=== PATIENT | male | born 1950 | race Caucasian/White ===

== ENCOUNTER 2017-10-25 11:04 | Emergency (ER) | payer MEDICARE ==
[~2017-10-25] VITALS: Ht 167.6 cm; Wt 89.9 kg
[~2017-10-25 11:04] MED LIST: CEFD300C37 PO; TAMS-11 PO
[2017-10-25 12:00] LABS: MICROSCOPIC AUTO
[2017-10-25 12:02] LABS: CULTURE INDICATED? NO
[2017-10-25 12:07] LABS: BASOPHILS # (AUTO) 0.03 x10^3/uL (0-0.1); BASOPHILS % (AUTO) 0 % (0-1); EOSINOPHILS # (AUTO) 0.04 x10^3/uL (0-0.4); EOSINOPHILS % (AUTO) 0 % (1-7); LYMPHOCYTES # (AUTO) 0.93 x10^3/uL (1-3.4); LYMPHOCYTES % (AUTO) 9 % (22-44); MD NO; MEAN CORPUSCULAR HEMOGLOBIN 29.5 pg (27.5-34.5); MEAN CORPUSCULAR HGB CONC 33.8 g/dL (33.2-36.2); MEAN CORPUSCULAR VOLUME 87.2 fL (81-97); MEAN PLATELET VOLUME 8.8 fL (7.4-10.4); MONOCYTES % (AUTO) 4 % (2-9); NEUTROPHILS # (AUTO) 9.33 x10^3/uL (1.8-6.8); NEUTROPHILS % (AUTO) 87 % (42-75); PLATELET COUNT 259 x10^3/uL (130-400); RED BLOOD COUNT 5.34 x10^6/uL (4.38-5.82); RED CELL DISTRIBUTION WIDTH 13.6 % (9.4-14.8)
[2017-10-25 12:14] LABS: ALBUMIN 3.8 g/dL (3.4-5.0); ANION GAP 8 mmol/L (5-15); CALCIUM 8.9 mg/dL (8.5-10.1); CHLORIDE 109 mmol/L (98-107); CREATININE 1.02 mg/dL (0.7-1.3)
[2017-10-25 12:27] VITALS: BP 137/84
== END 2017-10-25 13:04 | disposition home or self-care (01) ==
LOC: ED 12:58
DX: N40.1 Benign prostatic hyperplasia with lower urinary tract symptoms (principal); R33.8 Other retention of urine
CPT/HCPCS: 36415; 51702; 80048; 81001; 82040; 85025; 99284

== ENCOUNTER 2017-10-29 17:13 | Emergency (ER) | payer MEDICARE, OTHER ==
[~2017-10-29] VITALS: Ht 167.6 cm; Wt 85.0 kg
[2017-10-29 17:45] LABS: BASOPHILS # (AUTO) 0.05 x10^3/uL (0-0.1); BASOPHILS % (AUTO) 1 % (0-1); EOSINOPHILS # (AUTO) 0.12 x10^3/uL (0-0.4); EOSINOPHILS % (AUTO) 1 % (1-7); LYMPHOCYTES # (AUTO) 2.69 x10^3/uL (1-3.4); LYMPHOCYTES % (AUTO) 27 % (22-44); MD NO; MEAN CORPUSCULAR HEMOGLOBIN 29.8 pg (27.5-34.5); MEAN CORPUSCULAR HGB CONC 33.9 g/dL (33.2-36.2); MEAN CORPUSCULAR VOLUME 88.1 fL (81-97); MEAN PLATELET VOLUME 8.6 fL (7.4-10.4); MONOCYTES # (AUTO) 0.56 x10^3/uL (0.2-0.8); MONOCYTES % (AUTO) 6 % (2-9); NEUTROPHILS # (AUTO) 6.62 x10^3/uL (1.8-6.8); NEUTROPHILS % (AUTO) 66 % (42-75); PLATELET COUNT 302 x10^3/uL (130-400); RED CELL DISTRIBUTION WIDTH 13.9 % (9.4-14.8)
[2017-10-29 17:55] LABS: ANION GAP 7 mmol/L (5-15); CALCIUM 9.6 mg/dL (8.5-10.1); CHLORIDE 107 mmol/L (98-107); CREATININE 1.06 mg/dL (0.7-1.3)
[2017-10-29 18:10] LABS: MICROSCOPIC INDICATED
[2017-10-29 18:11] LABS: CULTURE INDICATED? YES
[2017-10-29 18:38] VITALS: BP 155/91
== END 2017-10-29 18:51 | disposition home or self-care (01) ==
LOC: ED 18:45
DX: R31.0 Gross hematuria (principal)
CPT/HCPCS: 36415; 80048; 81001; 82040; 85025; 87086; 99284

== ENCOUNTER → 2018-03-04 | Outpatient (CLI) | payer MEDICARE, OTHER ==
[~2018-03-04] MED LIST changes: +HYDR25TA6 PO; +NITR50CA11 PO
[2018-03-04 12:50] LABS: BASOPHILS # (AUTO) 0.04 x10^3/uL (0-0.1); BASOPHILS % (AUTO) 0 % (0-1); EOSINOPHILS # (AUTO) 0.04 x10^3/uL (0-0.4); EOSINOPHILS % (AUTO) 0 % (1-7); LYMPHOCYTES # (AUTO) 1.51 x10^3/uL (1-3.4); LYMPHOCYTES % (AUTO) 15 % (22-44); MD NO; MEAN CORPUSCULAR HEMOGLOBIN 29.2 pg (27.5-34.5); MEAN CORPUSCULAR HGB CONC 33.5 g/dL (33.2-36.2); MEAN CORPUSCULAR VOLUME 87.2 fL (81-97); MEAN PLATELET VOLUME 8.2 fL (7.4-10.4); MONOCYTES # (AUTO) 0.72 x10^3/uL (0.2-0.8); MONOCYTES % (AUTO) 7 % (2-9); NEUTROPHILS # (AUTO) 7.66 x10^3/uL (1.8-6.8); NEUTROPHILS % (AUTO) 77 % (42-75); PLATELET COUNT 302 x10^3/uL (130-400); RED BLOOD COUNT 5.88 x10^6/uL (4.38-5.82); RED CELL DISTRIBUTION WIDTH 12.5 % (9.4-14.8)
[2018-03-04 12:59] LABS: INTERNATIONAL NORMALIZED RATIO 1.02 (0.93-1.1); PROTHROMBIN TIME 10.5 Seconds (9.6-11.5)
[2018-03-04 13:00] LABS: ALANINE AMINOTRANSFERASE 25 U/L (12-78); ANION GAP 9 mmol/L (5-15); CALCIUM 9.6 mg/dL (8.5-10.1); CHLORIDE 106 mmol/L (98-107)
[2018-03-04 13:03] LABS: ALKALINE PHOSPHATASE 87 U/L (45-117); BILIRUBIN,TOTAL 0.7 mg/dL (0.2-1.0); TOTAL PROTEIN 8.3 g/dL (6.4-8.2)
[2018-03-04 13:09] LABS: MICROSCOPIC AUTO
== END | disposition home or self-care (01) ==
LOC: STAR 11:42
PROVIDERS: ATTEND Urology
DX: Z01.818 Encounter for other preprocedural examination (principal); R33.9 Retention of urine, unspecified; N40.0 Benign prostatic hyperplasia without lower urinary tract symptoms
CPT/HCPCS: 36415; 80053; 81001; 85025; 85610; 85730; 87086; 93005

== ENCOUNTER 2018-03-11 10:19 | Inpatient (IN) | payer MEDICARE, OTHER ==
[~2018-03-11] VITALS: Ht 167.6 cm; Wt 80.2 kg
[2018-03-11] MEDS ORDERED: LACTATED RINGERS 1,000 ML IV SCH (10:56)
[2018-03-11 11:07] VITALS: BP 160/100
[2018-03-11] MEDS ORDERED: PROPOFOL 10 MG/ML, 20ML ONE (14:28)
[2018-03-11] MEDS ORDERED: SUCCINYLCHOLINE 20 MG/ML, 10ML ONE (14:29)
[2018-03-11] MEDS ORDERED: ROCURONIUM 10MG/ML,5ML ONE (14:29)
[2018-03-11] MEDS ORDERED: DIPHENHYDRAMINE 50 MG/ML, 1ML IVPush PRN (14:30)
[2018-03-11] MEDS ORDERED: MEPERIDINE/PF 25MG/0.5ML IVPush PRN (14:30)
[2018-03-11] MEDS ORDERED: KETOROLAC 30 MG/1 ML IV PRN (14:30)
[2018-03-11] MEDS ORDERED: LABETALOL 5MG/ML, 20ML IV PRN (14:30)
[2018-03-11] MEDS ORDERED: LORazepam 2 MG/ML, 1ML IVPush PRN (14:30)
[2018-03-11] MEDS ORDERED: METOPROLOL 1 MG/ML, 5ML IV PRN (14:30)
[2018-03-11] MEDS ORDERED: ALBUTEROL SULFATE 2.5 MG/3 ML NPPB PRN (14:30)
[2018-03-11] MEDS ORDERED: MIDAZOLAM 1 MG/ML, 2ML ONE (14:30)
[2018-03-11] MEDS ORDERED: ACETAMINOPHEN 325 MG TABLET PO PRN (14:30)
[2018-03-11] MEDS ORDERED: HYDROmorphone 1 MG/ML, 1ML IV PRN (14:30)
[2018-03-11] MEDS ORDERED: OXYcodone 5 MG/5 ML ORAL.SOL UDC PO PRN (14:30)
[2018-03-11] MEDS ORDERED: EPHEDRINE 50 MG/ML, 1ML IVPush PRN (14:30)
[2018-03-11] MEDS ORDERED: HYDROcodone/APAP 7.5-325MG/15ML UDC PO PRN (14:30)
[2018-03-11] MEDS ORDERED: FENTANYL PF 100 MCG/2ML IV PRN (14:30)
[2018-03-11] MEDS ORDERED: ONDANSETRON 2MG/ML, 2ML IV PRN ×2 (14:30→19:00)
[2018-03-11] MEDS ORDERED: FENTANYL PF 100 MCG/2ML ONE ×3 (14:30→16:12)
[2018-03-11] MEDS ORDERED: GENTAMICIN 80 MG/2 ML ONE ×3 (14:34→14:49)
[2018-03-11] MEDS ORDERED: CEFAZOLIN 1,000 MG ONE (14:45)
[2018-03-11] MEDS ORDERED: DEXAMETHASONE 4 MG/ML, 1ML ONE (14:48)
[2018-03-11 16:45] LABS: BASOPHILS # (AUTO) 0.02 x10^3/uL (0-0.1); BASOPHILS % (AUTO) 0 % (0-1); EOSINOPHILS # (AUTO) 0.03 x10^3/uL (0-0.4); EOSINOPHILS % (AUTO) 0 % (1-7); LYMPHOCYTES # (AUTO) 1.67 x10^3/uL (1-3.4); LYMPHOCYTES % (AUTO) 13 % (22-44); MD NO; MEAN CORPUSCULAR HEMOGLOBIN 30.1 pg (27.5-34.5); MEAN CORPUSCULAR HGB CONC 34.2 g/dL (33.2-36.2); MEAN PLATELET VOLUME 8.2 fL (7.4-10.4); MONOCYTES # (AUTO) 0.31 x10^3/uL (0.2-0.8); MONOCYTES % (AUTO) 3 % (2-9); NEUTROPHILS # (AUTO) 10.54 x10^3/uL (1.8-6.8); NEUTROPHILS % (AUTO) 84 % (42-75); PLATELET COUNT 277 x10^3/uL (130-400); RED BLOOD COUNT 5.13 x10^6/uL (4.38-5.82); RED CELL DISTRIBUTION WIDTH 12.9 % (9.4-14.8)
[2018-03-11] MEDS ORDERED: OPIUM/BELLADONNA SUPP.RECT 16.2-60 MG PR PRN ×2 (17:00→19:00)
[2018-03-11] MEDS ORDERED: OPIUM/BELLADONNA SUPP.RECT 16.2-30 MG ONE (17:03)
[2018-03-11] MEDS ORDERED: OXYcodone 5 MG/5 ML ORAL.SOL UDC ONE (17:29)
[2018-03-11] MEDS ORDERED: LABETALOL 5MG/ML, 20ML ONE (17:36)
[2018-03-11 17:58] LABS: CHLORIDE 101 mmol/L (98-107)
[2018-03-11 18:04] LABS: ANION GAP 9 mmol/L (5-15); CALCIUM 8.1 mg/dL (8.5-10.1); CREATININE 0.81 mg/dL (0.7-1.3)
[2018-03-11] MEDS ORDERED: morphine SULFATE 10 MG/ML, 1ML IV PRN (19:00)
[2018-03-11] MEDS: D5%-0.45NACL+KCL 20MEQ 1,000 ML IV SCH (19:00)
[2018-03-11 19:57] VITALS: BP 116/72
[2018-03-12] MEDS: D5%-0.45NACL+KCL 20MEQ 1,000 ML IV SCH ×3 (00:17→16:00)
[2018-03-12 00:26] VITALS: BP 112/65
[2018-03-12 03:58] VITALS: BP 115/68
[2018-03-12 07:52] VITALS: BP 112/70
[2018-03-12] MEDS ORDERED: HYDROCHLOROTHIAZIDE 25 MG TABLET PO SCH ×2 (09:00→21:00)
[2018-03-12 12:42] VITALS: BP 148/84
[2018-03-12] MEDS ORDERED: CIPR500T87 PO (12:48)
[2018-03-12] MEDS ORDERED: OXYB5TAB7 PO (16:37)
[2018-03-12] MEDS ORDERED: OXYBUTYNIN CHLORIDE 5 MG TABLET PO SCH (17:00)
== END 2018-03-12 17:05 | disposition home or self-care (01) | DRG 713 ==
LOC: OUT 10:19 → 4NOR 18:27 → OUT 18:47
PROVIDERS: ADMIT Urology; ATTEND Urology
PROC: 0TBC8ZZ Excision of Bladder Neck, Via Natural or Artificial Opening Endoscopic (ICD-10-PCS; 2018-03-11)
PROC: 0VB08ZZ Excision of Prostate, Via Natural or Artificial Opening Endoscopic (ICD-10-PCS; principal; 2018-03-11 13:00)
DX: N40.1 Benign prostatic hyperplasia with lower urinary tract symptoms (principal); E87.1 Hypo-osmolality and hyponatremia; R33.8 Other retention of urine; I10 Essential (primary) hypertension
CPT/HCPCS: 36415; 80048; 85014; 85018; 85025; 88305; G0378; J0690; J1100; J2250; J2704; J3010; J0330; J1580; J3480; J7120

== ENCOUNTER 2018-03-15 11:20 | Emergency (ER) | payer MEDICARE ==
[~2018-03-15] VITALS: Ht 167.6 cm; Wt 80.6 kg
[~2018-03-15 11:20] MED LIST changes: +CIPR500T87 PO; +OXYB5TAB7 PO
[2018-03-15] MEDS ORDERED: LIDOCAINE 2%,20 ML JEL.PF.APP MM ONE ×2 (11:49→12:00)
[2018-03-15 13:18] VITALS: BP 128/83
== END 2018-03-15 13:31 | disposition home or self-care (01) ==
LOC: ED 13:20
DX: R33.9 Retention of urine, unspecified (principal); R10.30 Lower abdominal pain, unspecified
CPT/HCPCS: 51702; 99284

== ENCOUNTER 2018-03-21 17:09 | Emergency (ER) | payer MEDICARE ==
[~2018-03-21] VITALS: Ht 170.2 cm; Wt 81.6 kg
[2018-03-21 17:44] LABS: BASOPHILS # (AUTO) 0.05 x10^3/uL (0-0.1); BASOPHILS % (AUTO) 0 % (0-1); EOSINOPHILS % (AUTO) 1 % (1-7); LYMPHOCYTES % (AUTO) 18 % (22-44); MD NO; MEAN CORPUSCULAR HEMOGLOBIN 30.1 pg (27.5-34.5); MEAN CORPUSCULAR VOLUME 88.6 fL (81-97); MONOCYTES # (AUTO) 0.64 x10^3/uL (0.2-0.8); MONOCYTES % (AUTO) 5 % (2-9); NEUTROPHILS # (AUTO) 9.41 x10^3/uL (1.8-6.8); NEUTROPHILS % (AUTO) 76 % (42-75); PLATELET COUNT 344 x10^3/uL (130-400); RED CELL DISTRIBUTION WIDTH 12.9 % (9.4-14.8)
[2018-03-21 17:52] LABS: INTERNATIONAL NORMALIZED RATIO 1.02 (0.93-1.1); PROTHROMBIN TIME 10.5 Seconds (9.6-11.5)
[2018-03-21 17:55] LABS: ALANINE AMINOTRANSFERASE 21 U/L (12-78); ALBUMIN 3.5 g/dL (3.4-5.0); ANION GAP 11 mmol/L (5-15); CHLORIDE 107 mmol/L (98-107); CREATININE 0.86 mg/dL (0.7-1.3)
[2018-03-21 17:57] LABS: ALKALINE PHOSPHATASE 75 U/L (45-117); TOTAL PROTEIN 7.7 g/dL (6.4-8.2)
[2018-03-21] MEDS ORDERED: RIVAROXABAN 15 MG TABLET PO ONE (18:30)
[2018-03-21 19:05] VITALS: BP 151/87
== END 2018-03-21 19:08 | disposition home or self-care (01) ==
LOC: ED 17:56
DX: I82.431 Acute embolism and thrombosis of right popliteal vein (principal)
CPT/HCPCS: 36415; 80053; 85025; 85610; 93005; 99285

== ENCOUNTER 2018-03-22 14:48 | Emergency (ER) | payer MEDICARE ==
[~2018-03-22] VITALS: Ht 170.2 cm; Wt 82.6 kg
[2018-03-22 17:07] LABS: CULTURE INDICATED? YES; MICROSCOPIC INDICATED
[2018-03-22 17:34] VITALS: BP 137/86
== END 2018-03-22 17:35 | disposition home or self-care (01) ==
LOC: ED 17:15
DX: R33.9 Retention of urine, unspecified (principal); Z86.718 Personal history of other venous thrombosis and embolism; N40.0 Benign prostatic hyperplasia without lower urinary tract symptoms
CPT/HCPCS: 81001; 87077; 87086; 87186; 99284

== ENCOUNTER 2018-04-12 05:52 | Emergency (ER) | payer MEDICARE ==
[~2018-04-12] VITALS: Ht 167.6 cm; Wt 81.8 kg
[2018-04-12 06:41] LABS: MICROSCOPIC INDICATED
[2018-04-12 06:42] LABS: CULTURE INDICATED? YES
[2018-04-12 06:44] LABS: BASOPHILS # (AUTO) 0.04 x10^3/uL (0-0.1); BASOPHILS % (AUTO) 0 % (0-1); EOSINOPHILS # (AUTO) 0.32 x10^3/uL (0-0.4); EOSINOPHILS % (AUTO) 3 % (1-7); LYMPHOCYTES # (AUTO) 2.97 x10^3/uL (1-3.4); LYMPHOCYTES % (AUTO) 30 % (22-44); MD NO; MEAN CORPUSCULAR HGB CONC 33.8 g/dL (33.2-36.2); MEAN CORPUSCULAR VOLUME 88.8 fL (81-97); MEAN PLATELET VOLUME 8.5 fL (7.4-10.4); MONOCYTES # (AUTO) 0.58 x10^3/uL (0.2-0.8); MONOCYTES % (AUTO) 6 % (2-9); NEUTROPHILS # (AUTO) 5.97 x10^3/uL (1.8-6.8); NEUTROPHILS % (AUTO) 60 % (42-75); PLATELET COUNT 290 x10^3/uL (130-400); RED BLOOD COUNT 5.29 x10^6/uL (4.38-5.82); RED CELL DISTRIBUTION WIDTH 13.8 % (9.4-14.8)
[2018-04-12 06:47] LABS: ALBUMIN 3.7 g/dL (3.4-5.0); ANION GAP 11 mmol/L (5-15); CALCIUM 9.1 mg/dL (8.5-10.1); CHLORIDE 107 mmol/L (98-107); CREATININE 0.87 mg/dL (0.7-1.3)
[2018-04-12 10:12] VITALS: BP 145/108
== END 2018-04-12 10:14 | disposition home or self-care (01) ==
LOC: ED 06:15
DX: R31.0 Gross hematuria (principal); R33.9 Retention of urine, unspecified; I10 Essential (primary) hypertension; Z86.718 Personal history of other venous thrombosis and embolism
CPT/HCPCS: 36415; 51700; 51702; 80048; 81001; 82040; 85025; 87086; 99284

== ENCOUNTER 2018-04-18 14:33 | Emergency (ER) | payer MEDICARE ==
[~2018-04-18] VITALS: Ht 170.2 cm; Wt 80.2 kg
[2018-04-18 15:02] VITALS: BP 155/104
[2018-04-18] MEDS ORDERED: ANTIBIOTIC PO (15:02)
== END 2018-04-18 16:20 | disposition home or self-care (01) ==
LOC: ED 14:45
DX: T83.098A Other mechanical complication of other urinary catheter, initial encounter (principal); I10 Essential (primary) hypertension; Z86.718 Personal history of other venous thrombosis and embolism
CPT/HCPCS: 99283; 99284

== ENCOUNTER 2020-11-20 12:34 | Emergency (ER) | payer MEDICAID, MEDICARE ==
[~2020-11-20] VITALS: Ht 170.2 cm; Wt 73.8 kg
[~2020-11-20 12:34] MED LIST changes: +ANTIBIOTIC PO; +OXYB5TAB10 PO; -OXYB5TAB7 PO
[2020-11-20 13:11] VITALS: BP_DIAS 85
[2020-11-20] MEDS ORDERED: SODIUM CHLORIDE FLUSH 10ML SYR IVF ONE (14:00)
[2020-11-20] MEDS ORDERED: SODIUM CHLORIDE 0.9% 1,000ML IVBOLUS ONE (14:00)
[2020-11-20 14:17] LABS: BASOPHILS % (AUTO) 0 % (0-1); EOSINOPHILS % (AUTO) 0 % (1-7); LYMPHOCYTES % (AUTO) 15 % (22-44); MEAN CORPUSCULAR HEMOGLOBIN 30.4 pg (27.5-34.5); MEAN CORPUSCULAR HGB CONC 34.3 g/dL (33.2-36.2); MEAN PLATELET VOLUME 8.7 fL (7.4-10.4); MONOCYTES % (AUTO) 6 % (2-9); NEUTROPHILS % (AUTO) 79 % (42-75); PLATELET COUNT 225 x10^3/uL (130-400); RED BLOOD COUNT 5.05 x10^6/uL (4.38-5.82); RED CELL DISTRIBUTION WIDTH 12.9 % (9.4-14.8)
[2020-11-20] MEDS ORDERED: LIDOCAINE 2%,20 ML JEL.PF.APP MM ONE (14:20)
[2020-11-20 14:21] LABS: ALBUMIN 4.2 g/dL (3.4-5.0); ANION GAP 12 mmol/L (5-15); CALCIUM 9.5 mg/dL (8.5-10.1); CHLORIDE 102 mmol/L (98-107); CREATININE 0.83 mg/dL (0.7-1.3)
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
[2020-11-20 14:59] VITALS: BP_SYST 131
[2020-11-20 15:13] LABS: MICROSCOPIC INDICATED
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
--- NOTE | 2020-11-20 16:15 | NUR ---
SHAILESH NEVAREZD PER
== END 2020-11-20 16:43 | disposition home or self-care (01) ==
LOC: ED 15:47
DX: R31.0 Gross hematuria (principal); I10 Essential (primary) hypertension; N40.0 Benign prostatic hyperplasia without lower urinary tract symptoms; Z86.718 Personal history of other venous thrombosis and embolism
CPT/HCPCS: 36415; 51702; 80048; 81001; 82040; 85025; 86850; 86900; 87086; 99284